=== PATIENT | female | born 1970 | race Caucasian/White ===

== ENCOUNTER 2017-07-07 16:05 | Emergency (ER) | payer SELFPAY ==
[2017-07-07 17:54] LABS: KETONE, URINE AUTO RFX NEGATIVE (NEGATIVE); LEUKOCYTE ESTERASE UR AUTO RFX NEGATIVE (NEGATIVE); MUCUS, URINE RFX SMALL (NEGATIVE); NITRITE, URINE AUTO RFX NEGATIVE (NEGATIVE); RBC, URINE AUTO RFX 6 /HPF (0-3); SPECIFIC GRAVITY UR AUTO RFX 1.009 (1.002-1.035); SQUAM EPITHELIAL CELL UR AURFX 0 /HPF (0-6); WBC, URINE AUTO RFX 1 /HPF (0-3)
== END 2017-07-07 18:59 | disposition home or self-care (01) ==
LOC: M ED 16:05
DX: H66.92 Otitis media, unspecified, left ear (principal); R39.11 Hesitancy of micturition; J44.9 Chronic obstructive pulmonary disease, unspecified; F41.9 Anxiety disorder, unspecified; M51.9 Unspecified thoracic, thoracolumbar and lumbosacral intervertebral disc disorder; H91.90 Unspecified hearing loss, unspecified ear; F17.200 Nicotine dependence, unspecified, uncomplicated; Z86.69 Personal history of other diseases of the nervous system and sense organs; Z88.0 Allergy status to penicillin
CPT/HCPCS: 81001

== ENCOUNTER 2018-04-26 15:59 | Emergency (ER) | payer SELFPAY ==
[~2018-04-26] VITALS: Ht 160 cm; Wt 63.6 kg
[~2018-04-26 15:59] MED LIST: ZITHTAB PO
[2018-04-26 17:41] LABS: BASO % 0.5 % (0.0-1.0); EOS % 0.4 % (0.0-3.0); HEMATOCRIT 44.8 % (36.0-47.0); HEMOGLOBIN 14.9 g/dl (12.0-15.5); LYMPH # 1.3 10^3/uL (1.5-4.5); LYMPH % 23.8 % (24.0-44.0); MEAN CORPUSCULAR HEMOGLOBIN 31.8 pg (27.0-33.0); MEAN CORPUSCULAR HGB CONC 33.3 g/dl (32.0-36.5); MEAN CORPUSCULAR VOLUME 95.7 fl (80.0-96.0); MONO # 0.7 10^3/uL (0.0-0.8); MONO % 12.6 % (0.0-5.0); NEUTROPHILS # 3.5 10^3/uL (1.8-7.7); NEUTROPHILS % 62.5 % (36.0-66.0); PLATELET COUNT, AUTOMATED 171 10^3/uL (150-450); RED BLOOD COUNT 4.68 10^6/uL (4.00-5.40); WHITE BLOOD COUNT 5.6 10^3/uL (4.0-10.0)
[2018-04-26] MEDS ORDERED: ALBUTEROL SULFATE 2.5 MG/0.5 ML INH NEB SOLN NEB ONE (18:15)
[2018-04-26 18:24] LABS: ALBUMIN 3.8 GM/DL (3.2-5.2); ALT/SGPT 14 U/L (12-78); BILIRUBIN,DIRECT 0.1 MG/DL (0.0-0.2); BILIRUBIN,TOTAL 0.3 MG/DL (0.2-1.0); BLOOD UREA NITROGEN 3 MG/DL (7-18); CALCIUM LEVEL 8.5 MG/DL (8.5-10.1); CARBON DIOXIDE LEVEL 33 MEQ/L (21-32); CHLORIDE LEVEL 104 MEQ/L (98-107); CK-MB VALUE MASS < 1.0 NG/ML (<3.6); CPK CREATINE PHOSPHOKINASE 268 U/L (26-192); CREATININE FOR GFR 0.84 MG/DL (0.55-1.30); GLOMERULAR FILTRATION RATE > 60.0 (>51); GLUCOSE, FASTING 105 MG/DL (70-100); LIPASE 84 U/L (73-393); MB/CK RELATIVE INDEX 0.37 (< OR =4); POTASSIUM SERUM 3.5 MEQ/L (3.5-5.1); SODIUM LEVEL 141 MEQ/L (136-145); THYROID STIMULATING HORMONE 0.572 uIU/ML (0.358-3.740); TOTAL PROTEIN 6.6 GM/DL (6.4-8.2); TROPONIN I < 0.02 NG/ML (< 0.10)
--- NOTE | 2018-04-26 18:37 | REP ---
CHEST, PA AND LATERAL: 04/26/2018. Clinical history: Chest pain for weeks. Findings: No prior study. Lung crowell are well inflated and without infiltrate, effusion, atelectasis or mass. The heart, mediastinal, and hilar contours are normal. Aorta and airway are intact. There is no focal bone lesion. I see no free air under the diaphragm. Impression: 1. No acute cardiopulmonary change. Electronically Signed by Giuseppe Singh MD 04/26/2018 09:29 P
--- NOTE | 2018-04-26 18:48 | REPVR ---
EXAM: US Abdomen Limited, Right Upper Quadrant EXAM DATE/TIME: 04/26/2018 6:37 PM CLINICAL HISTORY: 48 years old, female; Pain; Abdominal pain; Epigastric; Additional info: Ruq/epigastric pain TECHNIQUE: Real-time ultrasound of the abdomen with image documentation. Examination was focused on the right upper quadrant. COMPARISON: No relevant prior studies available. FINDINGS: Liver: The liver is diffusely echogenic relative to the right kidney, findings consistent with steatosis. Gallbladder: Multiple mobile gallstones demonstrated. Sludge is demonstrated within the lumen of the gallbladder. Negative sonographic German's sign. No significant gallbladder wall thickening. Common bile duct: Common bile duct measures 5.4 mm. Pancreas: Visualized pancreas is unremarkable. Right kidney: Right kidney measures 10.8 x 5.1 x 5.2 cm. IMPRESSION: 1. Hepatic steatosis. 2. Multiple mobile gallstones demonstrated. Sludge is demonstrated within the lumen of the gallbladder. Negative sonographic German's sign. No significant gallbladder wall thickening. Electronically signed by: Mikey Sexton On 04/26/2018 18:48:04 PM
[2018-04-26 18:50] LABS: INFLUENZA A AMPLIFICATION POSITIVE (NEGATIVE); INFLUENZA B AMPLIFICATION NEGATIVE (NEGATIVE)
[2018-04-26] MEDS ORDERED: IPRATROPIUM 0.5MG/ALBUTEROL 2.5MG INH SOL UD 3ML (DUONEB)(J7620) NEB ONE (19:00)
[2018-04-26] MEDS ORDERED: predniSONE 20 MG TAB PO ONE (19:00)
[2018-04-26] MEDS ORDERED: VENTAER INH (19:55)
[2018-04-26] MEDS ORDERED: PRED20TA PO (19:55)
[2018-04-26 20:04] VITALS: BP 143/95
--- NOTE | 2018-04-27 08:03 | ECGEPIP ---
Stationary ECG Study [facility] [place] - ED Test Date: 2018-04-26 Pat Name: RUEL JEFFRIES Department: Room: - Gender: F [employer] Consultant: KELSEY : 1970 Requested By: JANET GILMAN Order Number: [id number] Reading MD: Capo Ruano Measurements Intervals Seney Rate: 100 P: 61 AL: 134 QRS: 41 QRSD: 89 T: 51 QT: 351 QTc: 453 Interpretive Statements SINUS TACHYCARDIA NO PRIORS FOR COMPARISON Electronically Signed On 04-27-2018 8:03:34 EST by Capo Ruano
== END 2018-04-26 20:06 | disposition home or self-care (01) ==
LOC: M ED 15:59
DX: J09.X2 Influenza due to identified novel influenza A virus with other respiratory manifestations (principal); J44.1 Chronic obstructive pulmonary disease with (acute) exacerbation; K80.70 Calculus of gallbladder and bile duct without cholecystitis without obstruction; F41.9 Anxiety disorder, unspecified; G43.909 Migraine, unspecified, not intractable, without status migrainosus; Z82.49 Family history of ischemic heart disease and other diseases of the circulatory system; Z88.0 Allergy status to penicillin; F17.210 Nicotine dependence, cigarettes, uncomplicated

== ENCOUNTER 2018-05-23 11:15 | Emergency (ER) | payer SELFPAY ==
[~2018-05-23] VITALS: Ht 160 cm; Wt 63.6 kg
[2018-05-23 11:15] VITALS: BP 131/81
[~2018-05-23 11:15] MED LIST changes: +PRED20TA PO; +VENTAER INH
[2018-05-23] MEDS ORDERED: DIFL150T PO (12:30)
[2018-05-23] MEDS ORDERED: ERYTHROMYCIN OPHTH OINT OD ONE (12:30)
[2018-05-23] MEDS ORDERED: ERYTOIN8 OD (12:30)
== END 2018-05-23 12:47 | disposition home or self-care (01) ==
LOC: M ED 11:15
DX: H10.021 Other mucopurulent conjunctivitis, right eye (principal); F17.210 Nicotine dependence, cigarettes, uncomplicated; Z88.0 Allergy status to penicillin

== ENCOUNTER 2018-07-10 10:19 | Emergency (ER) | payer SELFPAY ==
[~2018-07-10] VITALS: Ht 160 cm; Wt 69.0 kg
[~2018-07-10 10:19] MED LIST changes: +DIFL150T PO; +ERYTOIN8 OD
[2018-07-10 10:20] VITALS: BP 119/77
[2018-07-10] MEDS ORDERED: TETRACAINE 0.5% OPHTH SOLN 4ML OD ONE (10:45)
[2018-07-10] MEDS ORDERED: FLUORESCEIN OPHTH 1 MG STRIP OD ONE (10:45)
[2018-07-10] MEDS ORDERED: POLY2.5S OP (11:29)
== END 2018-07-10 11:35 | disposition home or self-care (01) ==
LOC: M ED 10:19
DX: H10.31 Unspecified acute conjunctivitis, right eye (principal); H81.10 Benign paroxysmal vertigo, unspecified ear; G43.909 Migraine, unspecified, not intractable, without status migrainosus; J44.9 Chronic obstructive pulmonary disease, unspecified; F41.9 Anxiety disorder, unspecified; M51.9 Unspecified thoracic, thoracolumbar and lumbosacral intervertebral disc disorder; Z88.0 Allergy status to penicillin